=== PATIENT | male | born 1995 | race Two or more races ===

== ENCOUNTER 2020-05-26 11:33 | Emergency (ER) | payer OTHER, MEDICAID, SELFPAY ==
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
[2020-05-26 12:37] VITALS: PULSE 90; RESP 16; TEMP 36.5; O2SAT 100; BMI 31.9
== END 2020-05-26 13:14 | disposition home or self-care (01) ==
LOC: HO.ED 12:58
PROVIDERS: Emergency Provider Emergency Medicine; PCP Internal Medicine
DX: M51.27 Other intervertebral disc displacement, lumbosacral region (principal)
CPT/HCPCS: 99283; 99284

== ENCOUNTER 2020-06-01 09:29 | Emergency (ER) | payer OTHER, MEDICAID, SELFPAY ==
[2020-06-01 09:43] VITALS: BP 171/95; PULSE 105; RESP 16; TEMP 36.9; O2SAT 100; BMI 32.1
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
[2020-06-01] MEDS: diazePAM 5 MG TABLET PO (13:31)
[2020-06-01] MEDS: NaPROXEN 500 MG TABLET PO (13:32)
[2020-06-01] MEDS: oxyCODONE HCl Immed Release 5 MG TABLET PO (13:32)
[2020-06-01] MEDS: predniSONE 20 MG TABLET 60 MG PO (13:32)
== END 2020-06-01 13:39 | disposition home or self-care (01) ==
PROVIDERS: Emergency Provider Emergency Medicine; PCP Internal Medicine
DX: M54.16 Radiculopathy, lumbar region (principal); M54.42 Lumbago with sciatica, left side; M54.41 Lumbago with sciatica, right side; M54.6 Pain in thoracic spine; Z79.899 Other long term (current) drug therapy
CPT/HCPCS: 99283

== ENCOUNTER 2021-05-01 15:35 | Outpatient (REF) | payer MEDICAID, SELFPAY ==
--- NOTE | ~2021-05-01 | US_ITS ---
EXAMINATION: US RETROPERITONEAL LIMITED (RENAL ONLY) CLINICAL INFORMATION: Family history of polycystic kidneys. COMPARISON: CT abdomen and pelvis 11/10/2015. TECHNIQUE: Real-time imaging of the kidneys. FINDINGS: RIGHT KIDNEY: 14.1 x 5.2 x 7.8 cm (SAG x AP x TRV). The kidney is normal in size and contour. There is diffuse increased echogenicity. Renal cortical thickness is normal. No hydronephrosis. There are multiple anechoic cysts. Midpole cysts measure 2.2 x 2.7 x 2.6 cm, 1.9 x 2.4 x 2.1 cm, 3.8 x 1.9 x 2.9 cm and cyst with septation measuring 1.5 x 1.9 x 1.7 cm. There are multiple echogenic stones in the midpole. They measure 0.33 x 0.18 x 0.45 cm, 0.30 x 0.31 x 0.23 cm and 0.54 x 0.36 x 0.54 cm. There is no caliectasis or hydronephrosis. LEFT KIDNEY: 16.4 x 8.7 x 7.6 cm (SAG x AP x TRV). The kidney is normal in size and contour. There is diffuse increased echogenicity. Renal cortical thickness is normal. No hydronephrosis. There are multiple anechoic cysts. Midpole cyst measures 2.2 x 2.2 x 2.2 cm, 2.4 x 2.0 x 1.6 cm and upper pole cyst measures 1.2 x 1.1 x 1.2 cm. There are several echogenic stones. A midpole echogenic stone measures 0.5 x 0.5 x 0.5 cm. Upper pole echogenic stone measures 0.44 x 0.52 x 0.59 cm. US/US renal BI IMPRESSION: Bilateral simple renal cysts except for a Bosniak type II cyst in midpole right kidney. Bilateral nonobstructive echogenic renal calculi. No caliectasis. Bilateral increased renal echogenicity.
== END 2021-05-01 15:36 | disposition home or self-care (01) ==
LOC: HO.HMGCX 15:35
PROVIDERS: PCP Internal Medicine; Visit Provider Internal Medicine
DX: Z82.71 Family history of polycystic kidney (principal)
CPT/HCPCS: 76775

== ENCOUNTER 2022-03-10 07:30 | Emergency (ER) | payer MEDICAID, SELFPAY ==
--- NOTE | ~2022-03-10 | XR_ITS ---
EXAMINATION: XR ANKLE, RIGHT CLINICAL INFORMATION: Pain and swelling of the right ankle COMPARISON: None TECHNIQUE: AP, lateral, and mortise views of the right ankle. FINDINGS: There is no fracture or dislocation. The ankle mortise is congruent. Ankle joint effusion present. Mild lateral soft tissue swelling. XR/XR ankle RT min 3V IMPRESSION: Soft tissue swelling with ankle joint effusion. No acute osseous abnormality.
[2022-03-10 08:06] VITALS: BP 160/84; PULSE 88; RESP 16; TEMP 36.6; O2SAT 97; BMI 39.0
--- NOTE | 2022-03-10 09:56 | ED_ITS ---
HPI - Extremity Problem General Chief complaint: Extremity Problem Stated complaint: R FOOT SWOLLEN PAINFULL Time Seen by Provider: 03/10/22 09:42 Source: patient Mode of arrival: ambulatory Limitations: no limitations History of Present Illness HPI Narrative: Patient presents emergency department for evaluation of right ankle pain swelling. States that he awoke this morning and noted be a swollen painful upon weight-bearing. He denies any known injury. 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 There is no redness, warmth, rash. Denies any history of similar occurring in the past. Denies any fevers, chills, chest pain, shortness of breath, difficulty breathing, pain or swelling in the calf or leg. Related Data Previous Rx's Medication Instructions Recorded dexamethasone 4 mg tablet 4 mg PO DAILY #5 tabs 05/26/20 (Decadron) methocarbamol 750 mg tablet 750 mg PO Q8H PRN muscle spasm #10 05/26/20 (Robaxin-750) tabs naproxen 500 mg tablet 500 mg PO BID PRN pain #20 tabs 05/26/20 diazepam 10 mg tablet (Valium) 10 mg PO BID PRN pain #14 tabs 06/01/20 ibuprofen 800 mg tablet 800 mg PO Q8H PRN pain #14 tabs 06/01/20 oxycodone 5 mg tablet 5 mg PO Q8H PRN pain #14 tabs 06/01/20 prednisone 20 mg tablet 40 mg PO DAILY rash 5 days #10 tabs 06/01/20 ibuprofen 600 mg tablet 600 mg PO Q8H PRN pain #30 tabs 03/10/22 Allergies Allergy/AdvReac Type Severity Reaction Status Date / Time No Known Allergies Allergy Unverified 02/07/20 19:06 [No Known Allergies*] Review of Systems Review of Systems: Constitutional: No weight loss, fever, chills, weakness or fatigue. Skin: No rash or itching. Cardiovascular: No chest pain, chest pressure or chest discomfort. No palpitations Respiratory: No shortness of breath, cough or sputum production. Gastrointestinal: No anorexia, nausea, vomiting or diarrhea. No abdominal pain Genitourinary: No burning micturition. No urinary frequency or incontinence. Musculoskeletal: Positive joint pain, swelling Psychiatric: No depression or anxiety. Yes all other systems are reviewed and are negative PENDING SALE TO [facility] Past Medical History Attestation statement: The following information was validated with the patient. Source: old records reviewed Medical History No known health problems Social History Social History Alcohol intake: never Advance Directives: No Physical Exam Vital Signs: Vital Signs: Last Vital Signs Temp 97.8 F 03/10/22 08:06 Pulse 88 03/10/22 08:06 Resp 16 03/10/22 08:06 BP 160/84 H 03/10/22 08:06 Pulse Ox 97 03/10/22 08:06 O2 Del Method 03/10/22 08:06 BMI result Body Mass Index 39.0 Appearance: Alert.?Oriented to person, place and time. No acute distress.?Normal affect. Eyes: Pupils equal, round and reactive to light.? ENT: Pharynx normal.?? Neck: Normal inspection.? Neck supple.?? CVS: Heart sounds normal. Normal heart rate and rhythm.? Pulses normal.?? Respiratory: No respiratory distress.? Lung sounds clear to auscultation bilaterally?? Abdomen: Soft and non-tender. Normoactive bowel sounds. Skin: Skin warm and dry.? Normal skin color.? Extremities: No lower extremity edema. Localized swelling to the right lateral malleolus without erythema, warmth, or rash. Palpable 2+ DP/PT pulse bilaterally Neuro: Moves all extremities spontaneously. Sensation intact bilaterally. Ambulates with antalgic gait. Course Course Course Narrative: Patient is a 26-year-old male with no significant past medical history presents emergency department for evaluation of right ankle pain and swelling. XR reveals no acute fracture dislocation, joint effusion is present. Upon physical exam no acute deformity, not consistent with septic arthritis. Suspect overuse injury resulting in sprain of the ankle. Discussed plan of care for rest, ice, compression with Terrence bandage, elevation of the extremity, crutches, NSAID. Reviewed worrisome signs and symptoms return back to emergency department for. Advised outpatient follow-up as needed after 1 week with Orthopedics if no improvement in symptoms. Patient verbalized understanding, was discharged home in stable condition. MDM - Extremity (Nontraumatic) Medical Records Attestation: I reviewed the patient's medical records. Lab Data Attestation: I reviewed the patient's lab results. Imaging Data XR ankle: Radiologist's impression: XR/XR ankle RT min 3V IMPRESSION: Soft tissue swelling with ankle joint effusion. No acute osseous abnormality. Discharge Plan Discharge Clinical Impression: Ankle sprain Qualifiers: Encounter type: initial encounter Laterality: right Patient Disposition: Home, Self-Care Instructions: Ankle Sprain (ED), Crutch Instructions (ED), How to Use an Elastic Bandage (ED), R.I.C.E. Treatment (ED) Additional Instructions: You can take ibuprofen 200 mg, 3 tablets (600mg) every 6-8 hours as needed for pain, in addition to Tylenol 500 mg, 2 tablets (1,000mg) every 4-6 hours as needed for pain, but not to exceed 3 doses daily (3,000mg).? If no improvement within 1 week you can follow-up with Orthopedics, their number has been provided to, you will need to call their office to schedule an appointment. Return to the emergency department any new or worsening symptoms or concerns. Prescriptions: New ibuprofen 600 mg tablet 600 mg PO Q8H PRN (Reason: pain) Qty: 30 0RF No Action oxycodone 5 mg tablet 5 mg PO Q8H PRN (Reason: pain) Qty: 14 0RF ibuprofen 800 mg tablet 800 mg PO Q8H PRN (Reason: pain) Qty: 14 0RF prednisone 20 mg tablet 40 mg PO DAILY 5 Days Qty: 10 0RF diazepam [Valium] 10 mg tablet 10 mg PO BID PRN (Reason: pain) Qty: 14 0RF methocarbamol [Robaxin-750] 750 mg tablet 750 mg PO Q8H PRN (Reason: muscle spasm) Qty: 10 0RF naproxen 500 mg tablet 500 mg PO BID PRN (Reason: pain) Qty: 20 0RF dexamethasone [Decadron] 4 mg tablet 4 mg PO DAILY Qty: 5 0RF Referrals: Jessica Loco PA-C [Physician Vice President Industrial Relations] - Stand Alone Forms: Work/School Release Print Language: Sami
== END 2022-03-10 10:38 | disposition home or self-care (01) ==
PROVIDERS: Emergency Provider Emergency Medicine Emergency Medical Services; PCP Internal Medicine
DX: S93.401A Sprain of unspecified ligament of right ankle, initial encounter (principal); X58.XXXA Exposure to other specified factors, initial encounter; Y93.9 Activity, unspecified; Y92.9 Unspecified place or not applicable; Y99.9 Unspecified external cause status
CPT/HCPCS: 73610; 99283

== ENCOUNTER 2022-11-14 14:22 | Emergency (ER) | payer MEDICAID, SELFPAY ==
[2022-11-14 15:14] VITALS: BP 151/97; PULSE 89; RESP 17; TEMP 36.5; O2SAT 98; BMI 40.2
--- NOTE | 2022-11-14 15:15 | ED.SKABFB ---
HPI - Skin/Abscess/Foreign Bdy General Chief complaint: Wound/Laceration Stated complaint: bump on head Time Seen by Provider: 11/14/22 16:55 History of Present Illness HPI narrative: patient complains of painful bump on the back of his neck that he has been squeezing, no fever no chills no headache no radiating pain no numbnes Related Data Previous Rx's Medication Instructions Recorded dexamethasone 4 mg tablet 4 mg PO DAILY #5 tabs 05/26/20 (Decadron) methocarbamol 750 mg tablet 750 mg PO Q8H PRN muscle spasm #10 05/26/20 (Robaxin-750) tabs naproxen 500 mg tablet 500 mg PO BID PRN pain #20 tabs 05/26/20 diazepam 10 mg tablet (Valium) 10 mg PO BID PRN pain #14 tabs 06/01/20 ibuprofen 800 mg tablet 800 mg PO Q8H PRN pain #14 tabs 06/01/20 oxycodone 5 mg tablet 5 mg PO Q8H PRN pain #14 tabs 06/01/20 prednisone 20 mg tablet 40 mg PO DAILY rash 5 days #10 tabs 06/01/20 ibuprofen 600 mg tablet 600 mg PO Q8H PRN pain #30 tabs 03/10/22 cephalexin 500 mg tablet 500 mg PO QID 7 days #28 tabs 11/14/22 doxycycline hyclate 100 mg capsule 100 mg PO BID 7 days #14 caps 11/14/22 ibuprofen 600 mg tablet 600 mg PO Q6H PRN pain #20 tabs 11/14/22 oxycodone 5 mg tablet 5 mg PO Q6H PRN pain #7 tabs 11/14/22 Allergies Allergy/AdvReac Type Severity Reaction Status Date / Time No Known Allergies Allergy Unverified 02/07/20 19:06 [No Known Allergies*] [facility] Past Medical History Source: nursing notes reviewed Medical History No known health problems Social History Social History Alcohol intake: never Advance Directives: No Advance Directives Information Provided: No Physical Exam Vital Signs: Vital Signs: Last Vital Signs Temp 97.7 F 11/14/22 15:14 Pulse 89 11/14/22 15:14 Resp 17 11/14/22 15:14 BP 151/97 H 11/14/22 15:14 Pulse Ox 98 11/14/22 15:14 O2 Del Method Room Air 11/14/22 15:14 BMI result Body Mass Index 40.2 general appearance is no distress The head is normocephalic atraumatic Neck exam there is full range of motion in the neck no meningismus Skin exam of the neck there is a hard indurated area on the back of the neck that has a central pustule, and some erythema, no obvious fluctuance No respiratory distress Extremities range of motion x4 Course Course Course Narrative: This is an RME: Additional HPI, ROS, PE not included below will be deferred to primary provider. Patient is a 27-year-old male who presents to the emergency department for evaluation of a lump to the scalp. Reports onset was 1 week ago after getting a haircut, painful. Denies fevers, chills, headache, dizziness, lightheadedness, neck pain, neck stiffness. Reports 2 days ago attempting to pull a hair out of the area, and developed bleeding subsequently. Pain is becoming increasingly worse. PE: Small abscess to the posterior scalp, central fluctuance, and surrounding induration Procedure note for indurated area on back of the neck The area is cleansed with Betadine Anesthesia is 5 cc of 1% lidocaine A small incision was made with a small amount of pus discharged Loculations were probed and the area was probed with a scalpel and there was no other pus but there was thick indurated tissue consistent with cellulitis Patient is treated with antibiotics Keflex and doxycycline and discharg Medications Administered Discontinued Medications Generic Name Dose Route Start Last Admin Trade Name Lawq PRN Reason Stop Dose Admin Lidocaine HCl 5 ml 11/14/22 17:44 11/14/22 17:50 Lidocaine Hcl 1 % Mpf 5 Ml Vial SUBCUT 11/14/22 17:45 5 ml ONCE ONE Administration Discharge Plan Discharge Clinical Impression: Abscess, Cellulitis Patient Disposition: Home, Self-Care Additional Instructions: there is only a small amount of pus in the cavity after I opened it up The tissue was red and thickened which is likely a skin infection so we are treating with 2 antibiotics Keflex and doxycycline Return in 2-3 days for wound check Return any time for spreading redness, worse pain and swelling, fever, any sign of worsening infection Prescriptions: New doxycycline hyclate 100 mg capsule 100 mg PO BID 7 Days Qty: 14 0RF cephalexin 500 mg tablet 500 mg PO QID 7 Days Qty: 28 0RF ibuprofen 600 mg tablet 600 mg PO Q6H PRN (Reason: pain) Qty: 20 0RF oxycodone 5 mg tablet 5 mg PO Q6H PRN (Reason: pain) Qty: 7 0RF Rx Instructions: Partial Fill upon patient request. No Action oxycodone 5 mg tablet 5 mg PO Q8H PRN (Reason: pain) Qty: 14 0RF ibuprofen 800 mg tablet 800 mg PO Q8H PRN (Reason: pain) Qty: 14 0RF prednisone 20 mg tablet 40 mg PO DAILY 5 Days Qty: 10 0RF diazepam [Valium] 10 mg tablet 10 mg PO BID PRN (Reason: pain) Qty: 14 0RF methocarbamol [Robaxin-750] 750 mg tablet 750 mg PO Q8H PRN (Reason: muscle spasm) Qty: 10 0RF naproxen 500 mg tablet 500 mg PO BID PRN (Reason: pain) Qty: 20 0RF dexamethasone [Decadron] 4 mg tablet 4 mg PO DAILY Qty: 5 0RF ibuprofen 600 mg tablet 600 mg PO Q8H PRN (Reason: pain) Qty: 30 0RF
[2022-11-14] MEDS: Lidocaine HCl 1 % MPF 5 ML VIAL SUBCUT (17:50)
[2022-11-14] MEDS: cephALEXin 500 MG CAPSULE PO (18:35)
[2022-11-14] MEDS: Ibuprofen 600 MG TABLET PO (18:35)
[2022-11-14] MEDS: Doxycycline Monohydrate 100 MG CAPSULE PO (18:35)
[2022-11-14 18:38] VITALS: BP 155/94; PULSE 81; RESP 16; TEMP 36.6; O2SAT 100
== END 2022-11-14 18:49 | disposition home or self-care (01) ==
PROVIDERS: Emergency Provider Internal Medicine; PCP Internal Medicine
DX: L03.811 Cellulitis of head [any part, except face] (principal); M54.2 Cervicalgia; R51.9 Headache, unspecified; Z79.899 Other long term (current) drug therapy
CPT/HCPCS: 10060; 99284

== ENCOUNTER 2023-02-01 14:52 | Outpatient (REF) | payer MEDICAID, SELFPAY ==
[2023-02-01 17:29] LABS: MANUAL DIFF FLAG NO
[2023-02-01 17:36] LABS: Basophils Percent Auto 0.4 % (0-2); Eosinophils Absolute Auto 0.1 X10*3/uL (0.0-0.4); Hematocrit 47.1 % (42.0-52.0); Hemoglobin 15.8 g/dl (14.0-18.0); Imm Gran Abs Auto 0.01 X10*3/uL (0.00-0.03); Imm Gran Pct Auto 0.1 % (0.0-0.4); Lymphocytes Percent Auto 37.5 % (20-40); Mean Corpuscular HGB Conc 33.5 g/dl (31.0-36.0); Mean Corpuscular Hemoglobin 29.2 pg (27.0-33.0); Mean Corpuscular Volume 86.9 fL (80.0-98.0); Mean Platelet Volume 10.9 fL (9.4-12.4); Monocytes Absolute Auto 0.6 X10*3/uL (0.1-1.2); Monocytes Percent Auto 7.9 % (2-11); Neutrophils Absolute Auto 4.2 x10*3/uL (2.0-8.3); Neutrophils Percent Auto 53.1 % (45-73); Platelet Count 212 X10*3/uL (160-400); Red Blood Count 5.42 X10*6/uL (4.60-5.80); Red Cell Distribution Width 12.5 % (11.0-16.0); White Blood Count 7.9 X10*3/uL (4.8-10.8)
[2023-02-01 17:54] LABS: Alanine Aminotransferase 141 U/L (0-40); Albumin Level 4.4 g/dL (3.5-5.0); Alkaline Phosphatase 71 U/L (39-117); Anion Gap 12 (12-20); Aspartate Amino Transferase 83 U/L (5-37); Bilirubin Total 0.5 mg/dL (0.0-1.0); Blood Urea Nitrogen 16 mg/dL (9-16); Calcium 9.8 mg/dL (8.4-10.2); Carbon Dioxide 29 mmol/L (22-29); Chloride 104 mmol/L (96-108); Cholesterol 229 mg/dL (<200); Estimated Glomerular Filt Rate > 60; Glucose Random 94 mg/dL (60-115); HDL Cholesterol 38 mg/dL (>40); LDL Cholesterol Calculated 160 mg/dL (<100); Potassium 3.5 mmol/L (3.3-5.1); Sodium 141 mmol/L (135-145); Total Protein 8.3 g/dL (6.5-8.0); Triglycerides 157 mg/dL (<150)
[2023-02-01 18:11] LABS: TSH reflex Free T4 1.66 uIU/mL (0.32-4.0)
[2023-02-02 03:59] LABS: ~HepC Num1 0.26 S/CO (0.00-0.79); ~Hepatitis C Antibody Nonreactive (Nonreactive)
[2023-02-02 05:21] LABS: Estimated Average Glucose 120 mg/dL; Hemoglobin A1c % 5.8 % (<6.0)
== END 2023-02-01 14:53 | disposition home or self-care (01) ==
LOC: HO.CHCLDS 14:52
PROVIDERS: Visit Provider Internal Medicine
DX: I10 Essential (primary) hypertension (principal)
CPT/HCPCS: 36415; 80053; 80061; 83036; 84443; 85025; 86803

== ENCOUNTER 2024-08-28 09:43 | Outpatient (REF) | payer MEDICAID, SELFPAY ==
[2024-08-28 14:09] LABS: MANUAL DIFF FLAG NO
[2024-08-28 14:15] LABS: Basophils Percent Auto 0.4 % (0-2); Eosinophils Absolute Auto 0.1 X10*3/uL (0.0-0.4); Hematocrit 47.1 % (42.0-52.0); Hemoglobin 15.6 g/dl (14.0-18.0); Imm Gran Abs Auto 0.01 X10*3/uL (0.00-0.03); Imm Gran Pct Auto 0.1 % (0.0-0.4); Lymphocytes Absolute Auto 2.5 X10*3/uL (1.2-4.9); Lymphocytes Percent Auto 35.5 % (20-40); Mean Corpuscular HGB Conc 33.1 g/dl (31.0-36.0); Mean Corpuscular Hemoglobin 28.9 pg (27.0-33.0); Mean Corpuscular Volume 87.4 fL (80.0-98.0); Mean Platelet Volume 10.8 fL (9.4-12.4); Monocytes Absolute Auto 0.5 X10*3/uL (0.1-1.2); Monocytes Percent Auto 6.6 % (2-11); Neutrophils Percent Auto 56.4 % (45-73); Platelet Count 228 X10*3/uL (160-400); Red Blood Count 5.39 X10*6/uL (4.60-5.80); Red Cell Distribution Width 12.6 % (11.0-16.0); White Blood Count 7.1 X10*3/uL (4.8-10.8)
[2024-08-28 14:30] LABS: Estimated Average Glucose 126 mg/dL; Hemoglobin A1C 177.7698 umol/L; Total Hemoglobin (HGBA1C) 4205.0552 umol/L
[2024-08-28 14:36] LABS: Creatinine Urine 107.21 mg/dL; Microalbum/Creatinine Ratio Ur 71.8 ug/mg cr (<30)
[2024-08-28 14:48] LABS: Alanine Aminotransferase 104 U/L (0-40); Albumin Level 4.2 g/dL (3.5-5.0); Alkaline Phosphatase 75 U/L (39-117); Anion Gap 10 (12-20); Aspartate Amino Transferase 59 U/L (5-37); Bilirubin Direct 0.2 mg/dL (0.0-0.5); Bilirubin Total 0.5 mg/dL (0.0-1.0); Blood Urea Nitrogen 14 mg/dL (9-16); Calcium 9.5 mg/dL (8.4-10.2); Carbon Dioxide 28 mmol/L (22-29); Chloride 105 mmol/L (96-108); Cholesterol 192 mg/dL (<200); Estimated Glomerular Filt Rate > 60; Glucose Fasting 116 mg/dL (60-99); HDL Cholesterol 39 mg/dL (>40); LDL Cholesterol Calculated 129 mg/dL (<100); Sodium 139 mmol/L (135-145); Total Protein 8.2 g/dL (6.5-8.0); Triglycerides 122 mg/dL (<150)
[2024-08-28 15:07] LABS: TSH reflex Free T4 1.87 uIU/mL (0.32-4.0)
== END 2024-08-28 09:44 | disposition home or self-care (01) ==
LOC: HO.CHCLDS 09:43
PROVIDERS: Visit Provider Pediatrics
DX: I10 Essential (primary) hypertension (principal)
CPT/HCPCS: 36415; 80048; 80061; 80076; 82043; 82570; 83036; 84443; 85025

== ENCOUNTER 2024-11-20 15:32 | Outpatient (AMB) | payer OTHER, SELFPAY ==
--- OUTSIDE RECORDS SUMMARY | 2018-11-02 10:45 | XMS_ITS | Continuity of Care Document ---
Author Organization [facility] Address [address] [place] [address] Phone Care Team Providers Care Train Station Server Name Role Phone Unavailable Unavailable Unavailable Medications Medication Instructions Dosage Effective Dates (start - stop) Status Comments No Drug Therapy Prescribed Procedures Procedure Date Comprehensive Oral Evaluation-New Or Est ablished P High Risk Caries Risk Assessment 2018 Dental Sealant Measure Exclusion 2018 Intraoral-Complete Series Of Radiographi c Images Dental Optimal Visit Effifiency 019 Advance Directives Directive Yes / No Effective Date File Name No Information Encounters Encounter Description Practice Location Reason(s) For Visit Diagnoses Date Provider Providers Copied on Encounter [facility], [address], [place], [place], [id number], [place] tel:[phone] [facility] DEN-Dental caries, unspecified 201 9 No Information Family History Family Member Type Diagnosis Age At Onset No Information Payers Payer name Insurance type Covered democrat ID Authoriza tiulices(s) [facility] [id number] Social History Type Description Quantity Date Captured Comments Sex Male Smoking Status No Information Sexual Orientation Straight or heterosexual Gender Identity Male Vital Signs Date / Time: Height Weight BMI Pulse Rate Blood Pressure Temperature Respiratory Rate Body Surface Area Head Circumference Head Circ. Percentile Wt./Tony. Percentile BMI percentile Pulse Ox Inhaled Ox 2:53 PM 66.00 in 109.316 kg (241.00 lbs) 38.9 0 kg/m eter (2) 76 /min 129/79 mm[Hg] Chief Complaint And Reason For Visit No Information Reason For Referral Reason For Referral No Information History Of Present Illness Encounter Date Complaint History Of Prese nt Illness No Information Functional Status Date Functional Assessmen t Pain Score 0/10 Medications Administered Medication Instructions Dosage Effective Dates (start - stop) Status Comments No Drug Therapy Prescribed Instructions Date Instruction Additional Infor bon Patient Education Given Related to DEN-Dental caries, unspecified Assessments Type Assessment Date assessment DEN-Dental caries, unspecified J Patient Care Teams Name Effective Dates (start - stop) Status Members No Information
--- NOTE | 2024-11-20 15:32 | HO.NEPHOV ---
Vital Signs 11/20/24 15:33 Height 5 ft 10 in Weight 277 lb BMI 39.7 BP 112/76 Blood Pressure Location Rt brachial Position Sitting Pulse 97 Pulse Source Pulse Oximeter Pulse Oximetry (%) 97 Oxygen Delivery Method Room Air Intake Visit Reasons: ENP:Microalbuminuria/ Conf Dry Cans Back Tender Required: No Accompanied by: Self / Same As Patient Allergies No Known Allergies (No Known Allergies*) Allergy (Verified 11/20/24 15:35) Medication List - Last Reconciled 11/20/24 by Kenny Kirby MD lisinopril-hydrochlorothiazide 10-12.5 mg 1 tab PO DAILY phentermine 15 mg PO QAM topiramate 50 mg PO DAILY HPI Comments Details: The patient is a 29-year-old male presenting with proteinuria and concerns about kidney health. Protein was detected in his urine during a recent evaluation, and he has a history of hypertension managed with lisinopril and hydrochlorothiazide. He reports elevated liver enzymes but denies alcohol consumption. The patient is concerned about his weight, having increased from 225 pounds to 277 pounds, and is taking topiramate for weight loss. He engages in physical activity by playing baseball with his son three times a week for about two hours each session and has made dietary changes to reduce carbohydrate intake and avoid sugary foods and beverages. He plans to continue these lifestyle modifications to aid in weight loss and improve his health. [facility] Medical History No known health problems Social History Alcohol intake: never Review of Systems Const Denies fever(s) and Denies weight loss Card Denies chest pain Resp Denies cough and Denies hemoptysis GI Denies abdominal pain, Denies diarrhea and Denies nausea Musc Denies back pain Neuro Denies focal weakness Physical Exam Vital Signs: Last Vital Signs Pulse 97 11/20/24 15:33 BP 112/76 11/20/24 15:33 Pulse Ox 97 11/20/24 15:33 Oxygen Delivery Method Room Air 11/20/24 15:33 BMI result Body Mass Index 39.7 Comfortable Neck supple no JVD. Lungs entry equal no rales. Heart S1-S2 heard no gallop or rub. Abdomen soft nontender. Neuro alert awake oriented. No asterixis. Extremities no edema. Results Reviewed Nephrology Results: Hgb, (14.0-18.0) 15.6 g/dl 08/28/24 WBC, (4.8-10.8) 7.1 X10*3/uL 08/28/24 Plt Count, (160-400) 228 X10*3/uL 08/28/24 Sodium, (135-145) 139 mmol/L 08/28/24 Potassium, (3.3-5.1) 4.0 mmol/L 08/28/24 Chloride, (96-108) 105 mmol/L 08/28/24 Carbon Dioxide, (22-29) 28 mmol/L 08/28/24 BUN, (9-16) 14 mg/dL 08/28/24 Creatinine, (0.5-1.4) 0.94 mg/dL 08/28/24 Calcium, (8.4-10.2) 9.5 mg/dL 08/28/24 Urine Creatinine 107.21 mg/dL 08/28/24 Renal US 05/01/21 Assessment & Plan Assessment & Plan (1) Albuminuria: Code(s): R80.9 - Proteinuria, unspecified Category: Medical Plan: Young man with some microalbuminuria of 71 in the setting of obesity. Renal function is normal at baseline. Renal cyst Bosniak 2 Recommendations Needs weight loss. Agree with CHELLE inhibitors. Maintain blood pressure less than 130/80 As he loses weight the urinary protein excretion should improve. I had a lengthy discussion with him regarding this. Encouraged him to increase his physical activity and cut back on carbohydrate intake. Orders: Orders Basic Metabolic Panel 3 Weeks R80.9 - Proteinuria, unspecified UA and rflx microscopic 3 Weeks R80.9 - Proteinuria, unspecified Total Protein Urine Random 3 Weeks R80.9 - Proteinuria, unspecified Creatinine Urine 3 Weeks R80.9 - Proteinuria, unspecified Medications: Discontinued methocarbamol (Robaxin-750) Discontinued Reason: Patient no longer taking 750 mg PO Q8H PRN 10 tabs 0RF muscle spasm oxycodone Discontinued Reason: Patient no longer taking 5 mg PO Q8H PRN 14 tabs 0RF pain dexamethasone (Decadron) Discontinued Reason: Patient no longer taking 4 mg PO DAILY 5 tabs 0RF naproxen Discontinued Reason: Patient no longer taking 500 mg PO BID PRN 20 tabs 0RF pain diazepam (Valium) Discontinued Reason: Patient no longer taking 10 mg PO BID PRN 14 tabs 0RF pain ibuprofen Discontinued Reason: Patient no longer taking 800 mg PO Q8H PRN 14 tabs 0RF pain prednisone Discontinued Reason: Patient no longer taking 40 mg (2 x 20 mg) PO DAILY 5 days 10 tabs 0RF rash ibuprofen Discontinued Reason: Patient Completed Course 600 mg PO Q8H PRN 30 tabs 0RF pain cephalexin Discontinued Reason: Patient no longer taking 500 mg PO QID 7 days 28 tabs 0RF doxycycline hyclate Discontinued Reason: Patient no longer taking 100 mg PO BID 7 days 14 caps 0RF oxycodone Partial Fill upon patient request. Discontinued Reason: Patient no longer taking 5 mg PO Q6H PRN 7 tabs 0RF pain amoxicillin-pot clavulanate 875-125 mg Discontinued Reason: Patient no longer taking 1 tab PO Q12H 20 tabs 0RF ibuprofen Discontinued Reason: Patient Completed Course 600 mg PO Q6H PRN 20 tabs 0RF pain Coding Level of Care Code Est Pt Level 4 (84951) Diagnoses Albuminuria R80.9
[2024-11-20 15:33] VITALS: BP 112/76; PULSE 97; O2SAT 97; BMI 39.7
--- OUTSIDE RECORDS SUMMARY | 2024-11-20 16:14 | XMS_ITS | Clinical Summary ---
Author Organization [employer] Address [address] [facility] [address] [place] [address] Care Team Providers Care Lost And Found Clerk Name Role Phone Eliud Mckinney MD Primary Care Prov ider Allergies No known active allergies Medications hydrocortisone 2.5 % creamIndication s:Erythema intertrigo Apply topically 2 times daily. Apply 2 times a day x 2 weeks. 20 g 3 Active miconazole (Micatin) 2 % creamIndication s:Balanitis Apply to affected area 2 times daily for 2 weeks 28 g 5 08/14/19 26 Active lisinopril-hydr oCHLOROthiazide 10-12.5 MG tablet Take 1 tablet by mouth Once per day. 90 tablet 3 5 08/29/19 26 Active topiramate (Topamax) 50 MG tablet Take 1 tablet (50 mg) by mouth Once per day. 30 tablet 3 5 Active phentermine 15 MG capsule Take 1 capsule (15 mg) by mouth before breakfast. 30 capsule 5 12/01/19 25 Active Active Problems Problem Noted Date Diagnosed Date Transaminitis 10/31/2024 Assessment & Plan (10/31/2024 2:46 PM EDT): Denied alcohol intake, no symptoms, most likely SOTO, pending ultrasound, diet/lifestyle modifications discussed. Ultrasound scheduled for November 29 Microalbuminuria 10/31/2024 Assessment & Plan (10/31/2024 2:45 PM EDT): Will refer to nephrology, he is on deysi therapy Class 3 severe obesity due t o excess calories with serious comorbidity and body mass index (BMI) of 45.0 to 49.9 in adult 08/28/2024 Assessment & Plan (10/31/2024 2:37 PM EDT): Will add phentermine, follow up in 1 month Primary hypertension 02/01/2023 Assessment & Plan (10/31/2024 2:37 PM EDT): Controlled, keep low sodium diet and exercise as tolerated, keep bp log, target <140/90 Assessment & Plan (03/08/2023 3:08 PM EDT): Controlled, refers exercising every other day, continue low sodium diet, will follow up in 3 months, will leave on current treatment Assessment & Plan (02/01/2023 2:34 PM EDT): Uncontrolled, diet and exercise reviewed, lifestyle changes were reviewed. Will start on hydrochlorothiazide 25mg, labs ordered. Will follow up in 1 month Encounters Date Type Department Care Team Description 10/31/2024 2:00 PM EDT Office Visit [facility] [address] [place] [address] Eliud Mckinney MD Primary hypertension (Primary Dx); Class 3 severe obesity due to excess calories with serious comorbidity and body mass index (BMI) of 45.0 to 49.9 in adult; Transaminitis; Microalbuminuria 10/31/2024 Telephone [facility] [address] [place] [address] Eliud Mckinney MD Abdomen US appt 10/31/2024 Travel 10/22/2024 Patient Outreach [facility] [address] [place], [place] [phone] Chuck Saxena MD Pre-visit Planning (Pre visit planning LVM ) 09/25/2024 3:00 PM EDT Clinical Support [facility] [address] [place], [place] [phone] Janeth Leon RN Primary hypertension [I10] 09/25/2024 Travel 08/29/2024 Telephone [facility] [address] [place] [address] Li Newberry MD 08/29/2024 Orders Only [facility] [address] [place] [address] Li Newberry MD Transaminitis (Primary Dx) 08/28/2024 9:00 AM EDT Office Visit [facility] [address] [place] [address] Li Newberry MD Primary hypertension (Primary Dx); Dietary counseling; Exercise counseling; Class 3 severe obesity due to excess calories with serious comorbidity and body mass index (BMI) of 45.0 to 49.9 in adult 08/28/2024 Travel 08/22/2024 Population Health Risk Score [facility] () Department [address] [place] [phone] Provider, Population Health Generic from Last 3 Months Immunizations Immunization Administration Dates Next Due Influenza injectable quadrivalent preservative f ree 02/01/2023 Social History Tobacco Use Types Packs/Day Years Used Date Smoking Tobacco: Never Passive Smoke Exposure: Never Smokeless Tobacco: Never Tobacco Cessation:Counseling Given: Not Answered Alcohol Use Standard Drinks/Week Comments Not Currently 0 (1 standard drink = 0.6 oz pur e alcohol) Depression Answer Date Recorded Patient Health Questionnaire-9 Score 11 08/28/2024 Patient Health Questionnaire-9 Score 11 08/28/2024 Last PHQ-9: Questionnaire Data Not on file 0 08/28/2024 Housing Stability Answer Date Recorded What is your housing situation today? I have vipul yonathan 08/28/[address] you li ve. Do you have problems with any of the following? None of the above 08/28/2024 Food Insecurity Answer Date Recorded Within the past 12 months, y ou worried that your food would run out before you got money to buy more: Never True 08/28/2024 Within the past 12 months,th e food you bought just didn't last and you didn't have enough money to get more: Never True 12/2024 Transportation Answer Date Recorded In the past 12 months, has l ack of transportation kept you from medical appts, meetings, work or from getting things needed for daily living? No 08/28/2024 Utilities Answer Date Recorded In the past 12 months, has t he electric, gas, oil or water company threatened to shut off services in your home? No 08/28/2024 Depression Answer Date Recorded Patient Health Questionnaire-2 Score 2 08/28/2024 Internet Access Answer Date Recorded Internet Access Q1 Yes 08/28/2024 Internet Access Q2 Not on file 08/28/2024 Sex and Gender Information Value Date Recorded Sex Assigned at Male 03/22/2022 10:31 AM EDT Legal Sex Male 10:31 AM EDT Gender Identity Choose not to disclose 10:31 AM EDT Sexual Orientation Choose not to disclose 2021 10:31 AM EDT Last Filed Vital Signs Vital Sign Reading Time Taken Comments Blood Pressure 138/76 10/31/2024 2:16 PM EDT Pulse 70 10/31/2024 2:16 PM EDT Temperature 37.1 C (98.7 F) 10/31/2024 2:16 PM EDT Respiratory Rate 20 10/31/2024 2:16 PM EDT Oxygen Saturation 98% 08/13/2024 3:52 PM EDT Inhaled Oxygen Concentration - - Weight 122 kg (268 lb) 10/31/2024 2:16 PM EDT Height 170.2 cm (5' 7 ) 10/31/2024 2:16 PM EDT Body Mass Index 41.97 10/31/2024 2:16 PM EDT Plan of Treatment Upcoming Encounters Date Type Department Care Team (Late st Contact Info) Description 12/20/2024 1:15 PM EDT Telemedicine [facility] [address] [place] [address] Eliud Mckinney MD [address] [place] [address] Health Maintenance Due Date Last Done Comments Family Planning (PISQ) 2010 Hepatitis B Vaccines (1 of 3 - 19+ 3-dose series) 2014 COVID-19 Vaccine (3 - 2024-25 season) 2024 04/09/2021, 03/19/2021 Influenza Vaccine (#1) 2025 , 04/09/2021, 02/12/2020, Additional history exists Depression Monitoring 02/27/2025 08/28/2024, 025 Alcohol/Substance Use Screening 08/28/2025 08/28/2024 Diabetes: Hemoglobin A1C 08/28/2025 025, 02/01/2023, 04/06/2021, Additional history exists Disability Screening 08/28/2025 08/28/2024 SDOH Screening 08/28/2025 08/28/2024 Tobacco Screening 08/28/2025 08/28/2024 DTaP/Tdap/Td Vaccines (2 - Td or Tdap) 08/25/2026 08/25/2016 Lipid Panel 08/28/2029 08/28/2024, 01/21, 04/06/2021, Additional history exists Zoster Vaccines (1 of 2) 2045 RSV Patients and Patients Aged 60 years or older (1 - 1-dose 75+ series) 2070 HIV Screening Completed 05/08/2019 Hepatitis C Screening Completed 02/01/2023 HIB Vaccines Aged Out No longer eligi ble based on patient's age to complete this topic HPV Vaccines Aged Out No longer eligi ble based on patient's age to complete this topic Hepatitis A Vaccines Aged Out No long er eligible based on patient's age to complete this topic IPV Vaccines Aged Out No longer eligi ble based on patient's age to complete this topic Meningococcal B Vaccine Aged Out No l onger eligible based on patient's age to complete this topic Meningococcal Vaccine Aged Out No jim arthur eligible based on patient's age to complete this topic Pneumococcal Vaccine: Pediatrics (0 to 5 Years) and At-Risk Patients (6 to 49) Years Aged Out No longer eligible based on patient's age to complete this topic RSV under 20 months Aged Out No longe r eligible based on patient's age to complete this topic Rotavirus Vaccines Aged Out No longer eligible based on patient's age to complete this topic Procedures Procedure Name Priority Date/Time Associated Diagnosis Comments ALBUMIN, RANDOM URINE W/CREATININE Routine 08/28/2024 9:49 AM EDT Primary hypertension TSH W/REFLEX TO FT4 Routine 08/28/2024 9 :44 AM EDT Primary hypertension LIPID PANEL, STANDARD Routine 08/28/2024 9:44 AM EDT Primary hypertension BASIC METABOLIC PANEL, FASTING Routine 08/28/2024 9:44 AM EDT Primary hypertension HEPATIC FUNCTION PANEL Routine 08/28/2024 9:44 AM EDT Primary hypertension HEMOGLOBIN A1C Routine 08/28/2024 9:44 AM EDT Primary hypertension CBC WITH AUTO DIFFERENTIAL Routine 08/28/2024 9:44 AM EDT Primary hypertension HEPATITIS C AB W/REFL TO HCV RNA, QN, PCR Routine 02/01/2023 2:46 PM EDT Primary hypertension ZZZ HISTORICAL HIV AB/AG Routine 05/08/2019 1:55 PM EST from Last 3 Months or Most Recently Relevant to Health Maintenance Results * (ABNORMAL) Albumin, Random Urine W/Creatinine (08/28/2024 9:49 AM EDT) Creatinine, Urine 107.21 mg/dL [facility] Microalbumin Urine 77.0 mg/L [facility] Microalbum Creatinine Ratio Ur 71.8(H) <30 ug/mg cr [facility] Comment:Albumin/Creatinine R atio Reference Ranges: Normal: < 30 ug/mg creatinine Microalbuminuria: 30 - 300 ug/mg creatinineClinical Albuminuria: > 300 ug/mg creatinine Urine (Urine, Random) 08/28/2024 9:49 AM EDT 08/28/2024 2:05 PM EDT us Li Newberry MD LAB URINE ORDERABLES Final Re sult Performing Organization Address City/[facility]/ZIP Co de Phone Number [facility] [address] [place] [address] [phone] * (ABNORMAL) Basic Metabolic Panel, Fasting (08/28/2024 9:44 AM EDT) Sodium 139 135 - 145 mmol/L [facility] Potassium 4.0 3.3 - 5.1 mmol/L [facility] Chloride 105 96 - 108 mmol/L [facility] Carbon Dioxide 28 22 - 29 mmol/L [facility] Anion Gap 10(L) 12 - 20 [facility] Urea Nitrogen (BUN) 14 9 - 16 mg/dL [facility] Creatinine, Serum 0.94 0.5 - 1.4 mg/dL [facility] Estimated Glomerular Filt Rate >60 [facility] Comment:Chronic Kidney Disea se: Estimated GFR < 60 mL/min/[id number] Kidney Disease: Estimated GFR < 15 mL/min/1.73m2 Glucose Fasting 116(H) 60 - 99 mg/dL [facility] Comment:A fasting glucose fr om 100-125 mg/dl is considered impaired(pre-diabetes). Calcium 9.5 8.4 - 10.2 mg/dL [facility] Blood Venous blood specimen / Unknown 08/28/2024 9:44 AM EDT 08/28/2024 2:06 PM EDT Li Newberry MD LAB BLOOD ORDERABLES Final Re sult [facility] [address] [place] [address] [phone] * TSH W/Reflex to FT4 (08/28/2024 9:44 AM EDT) TSH reflex Free T4 1.87 0.32 - 4.0 uIU/mL [facility] Blood Venous blood specimen / Unknown 08/28/2024 9:44 AM EDT 08/28/2024 2:06 PM EDT us Li Newberry MD LAB BLOOD ORDERABLES Final Re sult [facility] [address] [place] [address] [phone] * CBC auto differential (08/28/2024 9:44 AM EDT) White Blood Count 7.1 4.8 - 10.8 X10*3/uL [facility] Red Blood Count 5.39 4.60 - 5.80 X10*6/uL [facility] Hemoglobin 15.6 14.0 - 18.0 g/dl [facility] Hematocrit 47.1 42.0 - 52.0 % [facility] Mean Corpuscular Volume 87.4 80.0 - 98.0 fL [facility] Mean Corpuscular Hemoglobin 28.9 27.0 - 33.0 pg [facility] Mean Corpuscular HGB Conc 33.1 31.0 - 36.0 g/dl [facility] Red Cell Distribution Width 12.6 11.0 - 16.0 % [facility] Platelet Count 228 160 - 400 X10*3/uL [facility] Mean Platelet Volume 10.8 9.4 - 12.4 fL [facility] Neutrophils Percent Auto 56.4 45 - 73 % [facility] Imm Gran Pct Auto 0.1 0.0 - 0.4 % [facility] Lymphocytes Percent Auto 35.5 20 - 40 % [facility] Monocytes Percent Auto 6.6 2 - 11 % [facility] Eosinophils Percent Auto 1.0 0 - 4 % [facility] Basophils Percent Auto 0.4 0 - 2 % [facility] NRBC Pct Auto 0.0 0.0 - 0.2 /100WBC [facility] Neutrophils Absolute Auto 4.0 2.0 - 8.3 x10*3/uL [facility] Imm Gran Abs Auto 0.01 0.00 - 0.03 X10*3/uL [facility] Lymphocytes Absolute Auto 2.5 1.2 - 4.9 X10*3/uL [facility] Monocytes Absolute Auto 0.5 0.1 - 1.2 X10*3/uL [facility] Eosinophils Absolute Auto 0.1 0.0 - 0.4 X10*3/uL [facility] Basophils Absolute Auto 0.0 0.0 - 0.2 X10*3/uL [facility] NRBC Abs Auto 0.000 0.0 - 0.012 X10*3/uL [facility] Blood Venous blood specimen / Unknown 08/28/2024 9:44 AM EDT 08/28/2024 2:06 PM EDT us Li Newberry MD LAB BLOOD ORDERABLES Final Re sult Performing Organization Address [facility] Co de Phone Number [facility] [address] [place] [phone] * Hemoglobin A1c (08/28/2024 9:44 AM EDT) Hemoglobin A1c 6.0 <6.0 % [facility] Comment:Hemoglobin A1C Refer ence Range Adults: 4.8 - 6.0 % Non diabetic: < 6.0 % Goal: < 7.0 %Additional Action Suggested: > 8.0 %Note: Hemoglobin A1c results are invalid for patients with abnormal amounts of HbF. Blood transfusions may impact the HbA1c concentration in the patient sample. Estimated Average Glucose 126 mg/dL [facility] Comment:eAG = Estimated ave rage glucose which is %A1C expressed asaverage glucose, using the formula of the [id number]-[id number] Glucose study (ADAG), Diabetes Care, Vol.31,#8,Dec. 2007 Blood Venous blood specimen / Unknown 08/28/2024 9:44 AM EDT 08/28/2024 2:06 PM EDT us Li Newberry MD LAB BLOOD ORDERABLES Final Re sult Performing Organization Address [facility]/ZIP Co de Phone Number [facility] [address] [place] [address] [phone] * (ABNORMAL) Hepatic Function Panel (08/28/2024 9:44 AM EDT) Bilirubin, Total 0.5 0.0 - 1.0 mg/dL [facility] Bilirubin, Direct 0.2 0.0 - 0.5 mg/dL [facility] Aspartate Amino Transferase 59(H) 5 - 37 U/L [facility] Alanine Aminotransferase 104(H) 0 - 40 U/L [facility] Total Protein 8.2(H) 6.5 - 8.0 g/dL [facility] Albumin Level 4.2 3.5 - 5.0 g/dL [facility] Alkaline Phosphatase 75 39 - 117 U/L [facility] Blood Venous blood specimen / Unknown 08/28/2024 9:44 AM EDT 08/28/2024 2:06 PM EDT us Li Newberry MD LAB BLOOD ORDERABLES Final Re sult [facility] [address] [place] [phone] * (ABNORMAL) Lipid Panel, Standard (08/28/2024 9:44 AM EDT) Triglycerides 122 <150 mg/dL [facility] Comment:Desirable Triglyceri de: less than 150 mg/dLBorderline High Triglyceride 150-199 mg/dLHigh Triglyceride: 200-499 mg/dLVery High Triglyceride: greater than or equal to 5OO mg/dL Cholesterol 192 <200 mg/dL [facility] Comment:Desirable Cholestero l: less than 200 mg/dLBorderline High Cholesterol: 200-239 mg/dLHigh Cholesterol: greater than 239 mg/dL LDL Cholesterol Calculated 129(H) <100 mg/dL [facility] Comment:Desirable LDL: less than 100 mg/dLNear Optimal/Above Optimal LDL: 110- 129 mg/dLBorderline High LDL: 130-159 mg/dLHigh LDL: 160-189 mg/dLVery High LDL: greater than or equal to 190 mg/dL HDL Cholesterol 39(L) >40 mg/dL [facility] Comment:Desirable HDL: great er than 40 mg/dL Note: This HDL assay may give artificially low results in patients with liver disease. Blood Venous blood specimen / Unknown 08/28/2024 9:44 AM EDT 08/28/2024 2:06 PM EDT us Li Newberry MD LAB BLOOD ORDERABLES Final Re sult Performing Organization Address [facility]/ZIP Co de Phone Number [facility] [address] [place] [phone] * Hepatitis C Antibody with Reflex to HCV, RNA, Quantitative, Real-Time PCR (02/01/2023 2:46 PM EDT) Hepatitis C Antibody Nonreactive Nonreactive [facility] Comment:Antibodies to HCV no t detected; does not exclude early acuteHCV infection. Blood Venous blood specimen / Unknown 02/01/2023 2:46 PM EDT 02/01/2023 5:26 PM EDT us Eliud Florentino MD LAB BLOOD ORDERABL ES Final Result Performing Organization Address [facility] Co de Phone Number [facility] [address] [place] [phone] * HIV AB/AG (05/08/2019 1:55 PM EST) HIV AG/AB NONREACTIVE [facility] Comment: HIV-1 p24 Ag and/or HIV-1/HIV-2 Ab not detected. A test result that is nonreactive does not exclude the possibility of exposure to or infection with HIV-1 and/or HIV-2. Nonreactive results in this assay for individuals with prior exposure to HIV-1 and/or HIV-2 may be due to antigen and antibody levels that are below the limit of detection of this assay. The [employer] HIV Ag/Ab Combo assay result and supplemental assay results should be interpreted in conjunction with the patient's clinical presentation, history and other laboratory results. If the results are inconsistent with clinical evidence, additional testing is suggested to confirm the result. 05/08/2019 1:55 PM EST us Eliud Florentino MD HISTORICAL/NON ORD ERABLE LABS Final Result [facility] Anywhere [address] from Last 3 Months or Most Recently Relevant to Health Maintenance [place] [place] [address] [employer] [facility] 2 Care Teams Lost And Found Clerk Relationship Specialty Start Date End Date Eliud Mckinney MD [address] [place] [phone] PCP - General Internal Medicine 05/08/19
== END 2024-11-20 15:50 | disposition home or self-care (01) ==
LOC: HO.HKA 15:32
PROVIDERS: PCP Internal Medicine; Referring Provider Internal Medicine; Visit Provider Internal Medicine Hypertension Specialist
DX: R80.9 Proteinuria, unspecified (principal)
CPT/HCPCS: 99214

== ENCOUNTER → 2024-11-20 15:32 | Outpatient (BNVA) | payer OTHER, SELFPAY | PROVIDERS: PCP Internal Medicine; Referring Provider Internal Medicine; Visit Provider Internal Medicine Hypertension Specialist | DX: I10 Essential (primary) hypertension (principal); R80.9 Proteinuria, unspecified; E66.9 Obesity, unspecified | CPT/HCPCS: 99212 ==

== ENCOUNTER 2025-03-15 08:56 | Outpatient (REF) | payer OTHER, SELFPAY ==
[2025-03-15 12:15] LABS: Alanine Aminotransferase 85 U/L (0-40); Albumin Level 4.5 g/dL (3.5-5.0); Alkaline Phosphatase 68 U/L (39-117); Anion Gap 10 (12-20); Aspartate Amino Transferase 55 U/L (5-37); Blood Urea Nitrogen 19 mg/dL (9-16); Calcium 9.4 mg/dL (8.4-10.2); Carbon Dioxide 30 mmol/L (22-29); Chloride 103 mmol/L (96-108); Cholesterol 210 mg/dL (<200); Estimated Glomerular Filt Rate > 60; HDL Cholesterol 38 mg/dL (>40); Potassium 4.0 mmol/L (3.3-5.1); Sodium 139 mmol/L (135-145); Total Protein 8.4 g/dL (6.5-8.0); Triglycerides 121 mg/dL (<150)
[2025-03-15 12:41] LABS: Appearance Urine Clear; Glucose Urine UA Negative (Negative); PH 5.5 (5.0-9.0); Specific Gravity - Urine 1.020 (1.005-1.025)
[2025-03-15 13:00] LABS: Total Protein Urine Random 13 mg/dL (<12)
== END 2025-03-15 08:57 | disposition home or self-care (01) ==
LOC: HO.10HDL 08:56
PROVIDERS: Internal Medicine; Visit Provider Internal Medicine Hypertension Specialist
DX: I10 Essential (primary) hypertension (principal); R80.9 Proteinuria, unspecified
CPT/HCPCS: 36415; 80053; 80061; 81003; 82570; 83036; 84156

== ENCOUNTER 2025-03-19 13:08 | Outpatient (AMB) | payer MEDICAID, SELFPAY ==
[2025-03-19 13:17] VITALS: BP 130/80; PULSE 91; O2SAT 98; BMI 40.0
--- NOTE | 2025-03-19 13:17 | HO.NEPHOV_ITS ---
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 Protein was detected in his urine during a recent evaluation, and he has a history of hypertension managed with lisinopril and hydrochlorothiazide. He reports elevated liver enzymes but denies alcohol consumption. The patient is concerned about his weight, having increased from 225 pounds to 277 pounds, and is taking topiramate for weight loss. He engages in physical activity by playing baseball with his son three times a week for about two hours each session and has made dietary changes to reduce carbohydrate intake and avoid sugary foods and beverages. He plans to continue these lifestyle modifications to aid in weight loss and improve his health. 03/19/25 - The patient is a 29-year-old male presenting with proteinuria - Current medications: lisinopril, hydrochlorothiazide, phentermine, topiramate. - Regular walking and dietary changes, including reduced sugar and carbohydrates. [facility] Medical History No known health problems Social History Alcohol intake: never Physical Exam Vital Signs: Last Vital Signs Pulse 91 03/19/25 13:17 BP 130/80 03/19/25 13:17 Pulse Ox 98 03/19/25 13:17 Oxygen Delivery Method Room Air 03/19/25 13:17 BMI result Body Mass Index 40.0 Results Reviewed Nephrology Results: Hgb, (14.0-18.0) 15.6 g/dl 08/28/24 WBC, (4.8-10.8) 7.1 X10*3/uL 08/28/24 Plt Count, (160-400) 228 X10*3/uL 08/28/24 Sodium, (135-145) 139 mmol/L 03/15/25 Potassium, (3.3-5.1) 4.0 mmol/L 03/15/25 Chloride, (96-108) 103 mmol/L 03/15/25 Carbon Dioxide, (22-29) 30 mmol/L H 03/15/25 BUN, (9-16) 19 mg/dL H 03/15/25 Creatinine, (0.5-1.4) 1.06 mg/dL 03/15/25 Calcium, (8.4-10.2) 9.4 mg/dL 03/15/25 Urine Protein, (Neg-Trace) Trace mg/dL 03/15/25 Urine Creatinine 185.52 mg/dL 03/15/25 Renal US 05/01/21 Assessment & Plan Assessment & Plan (1) Albuminuria: Code(s): R80.9 - Proteinuria, unspecified Category: Medical Plan: Young man with some microalbuminuria of 71 in the setting of obesity. Renal function is normal at baseline. Renal cyst Bosniak 2 Recommendations Needs weight loss. Agree with CHELLE inhibitors. Maintain blood pressure less than 130/80 As he loses weight the urinary protein excretion should improve. I had a lengthy discussion with him regarding this. Encouraged him to increase his physical activity and cut back on carbohydrate intake. Orders: Orders Basic Metabolic Panel 6 Months R80.9 - Proteinuria, unspecified Creatinine Urine 6 Months R80.9 - Proteinuria, unspecified UA and rflx microscopic 6 Months R80.9 - Proteinuria, unspecified Total Protein Urine Random 6 Months R80.9 - Proteinuria, unspecified Coding Level of Care Code Est Pt Level 4 (41519) Diagnoses Albuminuria R80.9
== END 2025-03-19 13:29 | disposition home or self-care (01) ==
LOC: HO.HKA 13:09
PROVIDERS: PCP Internal Medicine; Visit Provider Internal Medicine Hypertension Specialist
DX: R80.9 Proteinuria, unspecified (principal)
CPT/HCPCS: 99214

== ENCOUNTER → 2025-03-19 13:08 | Outpatient (BNVA) | payer MEDICAID, SELFPAY | PROVIDERS: PCP Internal Medicine; Visit Provider Internal Medicine Hypertension Specialist | DX: R80.9 Proteinuria, unspecified (principal); E66.9 Obesity, unspecified | CPT/HCPCS: 99212 ==